=== PATIENT | male | born 1965 | race Caucasian/White ===

== ENCOUNTER → 2018-05-31 | Outpatient (CLI) | payer BC ==
--- NOTE | 2018-06-01 07:18 | US ---
EXAMINATION TYPE: US abdomen complete DATE OF EXAM: 05/31/2018 COMPARISON: NONE CLINICAL HISTORY: R10.11 Right upper quadrant pain. Intermittent RUQ pain for 2 months EXAM MEASUREMENTS: Liver Length: 14.3 cm Gallbladder Wall: 0.2 cm CBD: 0.3 cm Spleen: 12.8 cm Right Kidney: 10.8 x 5.5 x 5.4 cm Left Kidney: 12.5 x 5.0 x 5.4 cm Pancreas: Appears somewhat heterogenous however no ductal dilatation is seen. Liver: appears wnl Gallbladder: non-mobile echogenic stone measures 0.4cm Evidence for sonographic Marinelli's sign: no CBD: wnl Spleen: upper limits of normal Right Kidney: no evidence of hydronephrosis or nephrolithiasis. Left Kidney: no evidence of hydronephrosis or nephrolithiasis. Dromedary hump is incidentally noted. Upper IVC: wnl Abd Aorta: wnl The liver is homogenous. The intrahepatic portion of the IVC and proximal abdominal aorta are within normal limits. Common bile duct is unremarkable. The visualized portions of the pancreas are hetero genous. The spleen is unremarkable. Kidneys are symmetric and free of hydronephrosis. No renal les ions are seen. IMPRESSION: 1. Slightly heterogenous pancreatic parenchyma without ductal dilatation. Correlate with amylase and lipase. 2. Cholelithiasis without sonographic evidence of acute cholecystitis. 3. Spleen size is upper limits of normal approaching criteria for splenomegaly.
== END | disposition home or self-care (01) ==
LOC: RADUSWWP 16:18
PROVIDERS: ATTEND Family Medicine
DX: K80.20 Calculus of gallbladder without cholecystitis without obstruction (principal); R16.1 Splenomegaly, not elsewhere classified; R93.2 Abnormal findings on diagnostic imaging of liver and biliary tract
CPT/HCPCS: 76700

== ENCOUNTER → 2024-06-24 | Outpatient (CLI) | payer BC ==
--- NOTE | 2024-06-24 15:15 | US ---
EXAMINATION TYPE: US kidneys/renal and bladder DATE OF EXAM: 06/24/2024 COMPARISON: US 2019 CLINICAL INDICATION: Male, 58 years old with history of R94.4 ABNORMAL KIDNEY FUNCTION STUDIES; TECHNIQUE: Grayscale imaging of the bilateral kidneys and urinary bladder: FINDINGS: EXAM MEASUREMENTS: Right Kidney: 10.5 x 5.0 x 5.4 cm Left Kidney: 11.8 x 5.8 x 5.6 cm Right Kidney: wnl Left Kidney: wnl Bladder: wnl Bilateral Jets seen: yes No hydronephrosis, shadowing calculus or renal mass identified. Corticomedullary differentiation is m aintained bilaterally. Urinary bladder is anechoic without wall thickening or internal debris. Bilate ral ureter jets identified. IMPRESSION: No hydronephrosis or nephrolithiasis. [facility], , 06/24/2024 3:13 PM
== END | disposition home or self-care (01) ==
LOC: RADUSWWP 14:23
PROVIDERS: ATTEND Family Medicine
DX: R94.4 Abnormal results of kidney function studies (principal)
CPT/HCPCS: 76770